=== PATIENT | female | born 1960 | race Caucasian/White ===

== ENCOUNTER 2023-10-22 11:14 | Observation (INO) | payer BC ==
[2023-10-22] MEDS ORDERED: FAMOTIDINE 20 MG/2 ML VIAL IV ONE (11:40)
[2023-10-22] MEDS ORDERED: NA CHLORIDE 0.9% 1,000 ML ONE (11:40)
[2023-10-22] MEDS ORDERED: DIPHENHYDRAMINE 50 MG/ML VIAL ONE (11:40)
[2023-10-22] MEDS ORDERED: METHYLPREDNISOLONE 125 MG INJ ONE (11:40)
[2023-10-22 12:07] LABS: Absolute Eosinophils 0.4 K/uL (0-0.5); Absolute Lymphocytes (CBC) 1.3 K/uL (0.7-4.9); Absolute Monocytes 0.6 K/uL (0.1-1.3); Absolute Neutrophil 7.3 K/uL (1.8-8.0); Basophils % 0.3 % (0-1.3); Eosinophils % 4.3 % (0-4.4); Hematocrit 42.8 % (36.0-45.0); Hemoglobin 14.4 g/dL (12.0-15.0); Lymphocytes % 13.5 % (15.3-44.8); MCH 30.7 pg (27.0-35.0); MCHC 33.5 g/dL (32.0-36.0); MCV 91.7 fL (80-100); MPV 8.5 fL (7.6-11.3); Monocytes % 6.5 % (3.3-12.3); Neutrophils % 75.4 % (41.7-73.7); Nucleated Red Blood Cells % 0.1 % (0-0); Platelets 331 thou/uL (152-406); RBC Red Blood Cell Count 4.67 M/uL (3.86-4.86); Red Cell Distribution Width 14.1 % (12.1-15.2)
[2023-10-22 12:09] LABS: Specific Gravity 1.024 (1.005-1.030); Sqamous Epithelial 20-50 /HPF (None Seen); Transitional Epithelial <5 /HPF (None Seen); Urine Bacteria None Seen /HPF (<20); Urine Bilirubin NEGATIVE (Negative); Urine Blood 1+ (Negative); Urine Clarity Extremely Turbid (Clear); Urine Color Yellow (Yellow); Urine Culture Reflex Order NOT NEEDED; Urine Glucose NEGATIVE (Negative); Urine Ketones NEGATIVE (Negative); Urine Microscopic Reflex YN ORDER UMIC; Urine Mucus Slight /HPF (None Seen); Urine Nitrite NEGATIVE (Negative); Urine Protein TRACE (Negative); Urine Urobilinogen Normal (Normal); Urine pH 5.5 (5.0-7.0)
[2023-10-22 12:25] LABS: Albumin 3.7 g/dL (3.4-5.0); Albumin/Globulin Ratio 0.9 (1.1-1.8); Anion Gap 7.4 mEq/L (5.0-15.0); Bilirubin Total 0.4 mg/dL (0.2-1.0); Globulin 3.9 g/dL (2.3-3.5); Potassium 3.4 mEq/L (3.5-5.1); Protein, Total 7.6 g/dL (6.4-8.2)
[2023-10-22] MEDS ORDERED: CEFTRIAXONE 1000 MG/VIAL ONE (12:48)
[2023-10-22] MEDS ORDERED: ONDANSETRON 4 MG/2 ML VIAL ONE (13:15)
[2023-10-22] MEDS ORDERED: MORPHINE 4 MG/ML SYR ONE (13:15)
--- NOTE | 2023-10-22 13:28 | ER ---
Nurse's Notes [facility] Name: Shane Slaughter Age: 63 yrs Sex: Female : 1960 Arrival Date: 10/22/2023 Time: 11:14 Bed 17 Private MD: Diagnosis: Erythema multiforme, unspecified;Dermatitis, unspecified;UTI/ Urinary tract infection, site not specified Presentation: 10/21 11:27 Coronavirus screen: Client denies travel out of the [place] in the last 14 days. At this ll1 time, the client does not indicate any symptoms associated with coronavirus-19. Ebola Screen: Patient denies travel to an Ebola-affected area in the 21 days before illness onset. Initial Sepsis Screen: Does the patient meet any 2 criteria? No. Patient's initial sepsis screen is negative. Does the patient have a suspected source of infection? No. Patient's initial sepsis screen is negative. Risk Assessment: Do you want to hurt yourself or someone else? Patient reports no desire to harm self or others. Onset of symptoms was October 17, 2023. 11:27 Method Of Arrival: Ambulatory ll1 11:27 Acuity: CHA 3 ll1 11:29 Chief complaint: Patient states: Had MRI last Sunday. Started to have rash with ll1 itching on Sunday morning. Already saw Dr. Luis for this, sent here for further evaluation. Triage Assessment: 11:30 General: Appears uncomfortable, Behavior is calm, cooperative, appropriate for age. ll1 Pain: Complains of pain in right hand and left hand Pain currently is 10 out of 10 on a pain scale. Quality of pain is described as burning, aching. Derm: Reports rash with itching. Historical: - Allergies: 11:26 PENICILLINS; ll1 11:26 Iodine; ll1 - PMHx: 11:26 None; ll1 - PSHx: 11:26 hysterectomy; ll1 - Immunization history:: Adult Immunizations. - Infectious Disease History:: Denies. - Social history:: Smoking status: Reported history of juuling and/or vaping. Screenin:36 [facility] ED Fall Risk Assessment (Adult) History of falling in the last 3 months, mb9 including since admission No falls in past 3 months (0 pts) Confusion or Disorientation No (0 pts) Intoxicated or Sedated No (0 pts) Impaired Gait No (0 pts) Mobility Assist Device Used No (0 pt) Altered Elimination No (0 pt) Score/Fall Risk Level 0 - 2 = Low Risk Oriented to surroundings, Maintained a safe environment, Educated pt \T\ family on fall prevention, incl call for assistance when getting out of bed. Abuse screen: Denies threats or abuse. Nutritional screening: No deficits noted. Tuberculosis screening: No symptoms or risk factors identified. Assessment: 11:44 General: Appears in no apparent distress. Behavior is calm, cooperative. Pain: Denies mb9 pain. Neuro: Huntley Agitation-Sedation Scale (RASS): 0 - Alert and Calm Level of Consciousness is awake, alert, obeys commands, Oriented to person, place, time, situation, Appropriate for age. Cardiovascular: Patient's skin is warm and dry. Respiratory: Airway is patent Respiratory effort is even, unlabored, Respiratory pattern is regular, symmetrical. GI: Abdomen is flat, non-distended. : No signs and/or symptoms were reported regarding the genitourinary system. EENT: No signs and/or symptoms were reported regarding the EENT system. Derm: Rash noted that is itchy, red, raised, on face, back, chest, abdomen, right arm, left arm, right leg and left leg. Musculoskeletal: Range of motion: intact in all extremities. 13:14 Reassessment: Patient appears in no apparent distress at this time. No changes from mb9 previously documented assessment. Patient and/or family updated on plan of care and expected duration. Pain level reassessed. Vital Signs: 11:27 BP 131 / 81; Pulse 77; Resp 16; Temp 97.4; Pulse Ox 99% ; Weight 62.6 kg; Height 5 ft. ll1 2 in. ; Pain 10/10; 13:14 BP 136 / 73; Pulse 74; Resp 18; Pulse Ox 100% on R/A; mb9 11:27 Body Mass Index 25.24 (62.60 kg, 157.48 cm) ll1 11:27 Pain Scale: Adult ll1 ED Course: 11:17 Patient arrived in ED. im 11:21 Dorian Slaughter MD is Attending Physician. que 11:27 Triage completed. ll1 11:27 Arm band placed on Patient placed in an exam room, on a stretcher. ll1 11:35 Sirena Matamoros, RN is Primary Nurse. mb9 11:35 Placed in gown. Bed in low position. Call light in reach. Side rails up X 1. press call mb9 light if needing anything. Client placed on continuous cardiac and pulse oximetry monitoring. NIBP monitoring applied. Door closed. Noise minimized. Warm blanket given. Pillow given. 11:44 Provided Education on: press call light if needing anything. mb9 11:52 Inserted saline lock: 18 gauge in left antecubital area, using aseptic technique. Blood zm collected. 11:53 Initial lab(s) drawn, by ia, sent to lab. zm 11:53 Urinalysis w/ reflexes Sent. zm 11:53 Comprehensive Metabolic Panel Sent. zm 11:53 CBC with Diff Sent. zm 13:26 Monty Ingram is Hospitalizing Provider. [facility] 13:34 No provider procedures requiring assistance completed. Patient admitted, IV remains in mb9 place. Administered Medications: 11:55 Drug: Famotidine IVP 40 mg IVP once; dilute with 10 mL 0.9% NaCl; give over 2 minutes mb9 Route: IVP; Site: left antecubital; 13:14 Follow up: Response: No adverse reaction mb9 11:59 Drug: MethylPrednisoLONE IVP 125 mg IVP once Route: IVP; Site: left antecubital; mb9 13:14 Follow up: Response: No adverse reaction mb9 12:00 Drug: NS 0.9% IV 1000 ml IV at 1 bolus Per protocol; 1000 mL bolus Route: IV; Rate: 1 mb9 bolus; Site: left antecubital; 13:14 Follow up: Response: No adverse reaction; IV Status: Completed infusion mb9 12:01 Drug: diphenhydrAMINE IVP 50 mg IVP once Route: IVP; Site: left antecubital; mb9 13:14 Follow up: Response: No adverse reaction mb9 12:51 Drug: Rocephin IV 1 grams IV at per protocol once; Given slow IV push per pharmacy mb9 instructions Route: IV; Rate: per protocol; Site: left antecubital; 13:17 Drug: Ondansetron IVP 4 mg IVP once; over 2 minutes Route: IVP; Site: left antecubital; mb9 13:35 Follow up: Response: No adverse reaction mb9 13:20 Drug: morphine IVP or IV 2 mg IVP once over 4 mins Route: IVP; Infused Over: 4 mins; mb9 Site: left antecubital; 13:35 Follow up: Response: No adverse reaction mb9 13:21 Drug: morphine IVP or IV 2 mg IVP once over 4 mins Route: IVP; Infused Over: 4 mins; mb9 Site: left antecubital; 13:35 Follow up: Response: No adverse reaction mb9 Medication: 11:36 VIS not applicable for this client. mb9 Outcome: 13:27 Decision to Hospitalize by Provider. que 15:36 Admitted to Med/surg mb9 15:36 Condition: stable 15:36 Instructed on the need for admit, 15:36 Patient left the ED. mb9 Signatures: Dorian Slaughter MD MD cha Lewis, Lynsay RN RN ll1 Mónica Nguyen Mary Beth RN RN mb9 Minna Duff
--- NOTE | 2023-10-22 13:28 | EDPHYS ---
Physician Documentation [facility] Name: Shane Slaughter Age: 63 yrs Sex: Female : 1960 Arrival Date: 10/22/2023 Time: 11:14 Bed 17 Private MD: ED Dorian Joiner HPI: 10/21 13:11 This 63 yrs old Female presents to ER via Ambulatory with complaints of Here que to see . 13:11 The patient's rash thought to be caused by iv contrast, mri. The rash is located on the que body diffusely. The rash can be described as erythematous, raised. Onset: The symptoms/episode began/occurred 5 day(s) ago. Associated signs and symptoms: Pertinent positives: burning sensation, Pain. Severity of symptoms: At their worst the symptoms were moderate in the emergency department the symptoms are unchanged. diffuse skin rash, no oral lesions. Treatment given at home: Benadryl, pepcid. The patient has not experienced similar symptoms in the past. Historical: - Allergies: 11:26 PENICILLINS; ll1 11:26 Iodine; ll1 - PMHx: 11:26 None; ll1 - PSHx: 11:26 hysterectomy; ll1 - Immunization history:: Adult Immunizations. - Infectious Disease History:: Denies. - Social history:: Smoking status: Reported history of juuling and/or vaping. ROS: 13:13 Constitutional: Negative for fever, chills, and weight loss, Eyes: Negative for injury, que pain, redness, and discharge, ENT: Negative for injury, pain, and discharge, Neck: Negative for injury, pain, and swelling, Cardiovascular: Negative for chest pain, palpitations, and edema, Respiratory: Negative for shortness of breath, cough, wheezing, and pleuritic chest pain, Abdomen/GI: Negative for abdominal pain, nausea, vomiting, diarrhea, and constipation, Back: Negative for injury and pain, : Negative for injury, bleeding, discharge, and swelling, MS/Extremity: Negative for injury and deformity, Neuro: Negative for headache, weakness, numbness, tingling, and seizure, Psych: Negative for depression, anxiety, suicide ideation, homicidal ideation, and hallucinations, Allergy/Immunology: Negative for hives, rash, and allergies, Endocrine: Negative for neck swelling, polydipsia, polyuria, polyphagia, and marked weight changes, Hematologic/Lymphatic: Negative for swollen nodes, abnormal bleeding, and unusual bruising, 13:13 Skin: Positive for rash, swelling, diffusely, Exam: 13:13 Constitutional: This is a well developed, well nourished patient who is awake, alert, que and in no acute distress. Head/Face: Normocephalic, atraumatic. Eyes: Pupils equal round and reactive to light, extra-ocular motions intact. Lids and lashes normal. Conjunctiva and sclera are non-icteric and not injected. Cornea within normal limits. Periorbital areas with no swelling, redness, or edema. ENT: Nares patent. No nasal discharge, no septal abnormalities noted. Tympanic membranes are normal and external auditory canals are clear. Oropharynx with no redness, swelling, or masses, exudates, or evidence of obstruction, uvula midline. Mucous membranes moist. Neck: Trachea midline, no thyromegaly or masses palpated, and no cervical lymphadenopathy. Supple, full range of motion without nuchal rigidity, or vertebral point tenderness. No Meningismus. Chest/axilla: Normal chest wall appearance and motion. Nontender with no deformity. No lesions are appreciated. Cardiovascular: Regular rate and rhythm with a normal S1 and S2. No gallops, murmurs, or rubs. Normal PMI, no JVD. No pulse deficits. Respiratory: Lungs have equal breath sounds bilaterally, clear to auscultation and percussion. No rales, rhonchi or wheezes noted. No increased work of breathing, no retractions or nasal flaring. Abdomen/GI: Soft, non-tender, with normal bowel sounds. No distension or tympany. No guarding or rebound. No evidence of tenderness throughout. Back: No spinal tenderness. No costovertebral tenderness. Full range of motion. Female : Normal external genitalia. MS/ Extremity: Pulses equal, no cyanosis. Neurovascular intact. Full, normal range of motion. Neuro: Awake and alert, GCS 15, oriented to person, place, time, and situation. Cranial nerves II-XII grossly intact. Motor strength 5/5 in all extremities. Sensory grossly intact. Cerebellar exam normal. Normal gait. Psych: Awake, alert, with orientation to person, place and time. Behavior, mood, and affect are within normal limits. 13:13 Skin: Appearance: Color: normal in color, Temperature: normal temperature, Moisture: normal moisture, petechiae, not noted, ecchymosis, not noted, rash a moderate rash is noted, Vital Signs: 11:27 BP 131 / 81; Pulse 77; Resp 16; Temp 97.4; Pulse Ox 99% ; Weight 62.6 kg; Height 5 ft. ll1 2 in. ; Pain 10/10; 13:14 BP 136 / 73; Pulse 74; Resp 18; Pulse Ox 100% on R/A; mb9 11:27 Body Mass Index 25.24 (62.60 kg, 157.48 cm) ll1 11:27 Pain Scale: Adult ll1 MDM: 11:21 Patient medically screened. [facility] 13:16 Differential diagnosis: impetigo, varicella, allergic reaction. Data reviewed: vital [facility] signs, nurses notes, lab test result(s). Consideration of Admission/Observation Patient was admitted/placed on observation. Escalation of care including admission/observation considered. I considered the following discharge prescriptions or medication management in the emergency department Medications were administered in the Emergency Department. See MAR. Care significantly affected by the following chronic conditions: none. 10/21 11:22 Order name: CBC with Diff; Complete Time: 12:23 [facility] 10/21 11:22 Order name: Comprehensive Metabolic Panel; Complete Time: 12:39 [facility] 10/21 11:22 Order name: Urinalysis w/ reflexes; Complete Time: 12:23 [facility] 10/21 12:24 Order name: Urine Culture [facility] 10/21 14:23 Order name: Basic Metabolic Panel [facility] 10/21 14:23 Order name: Basic Metabolic Panel [facility] 10/21 14:23 Order name: Basic Metabolic Panel [facility] 10/21 14:23 Order name: CBC with Automated Diff [facility] 10/21 14:23 Order name: CBC with Automated Diff [facility] 10/21 14:23 Order name: CBC with Automated Diff [facility] 10/21 14:23 Order name: T4 Free [facility] 10/21 14:23 Order name: T4 Free [facility] 10/21 14:23 Order name: Thyroid Stimulating Hormone [facility] 10/21 14:23 Order name: Thyroid Stimulating Hormone [facility] Administered Medications: 11:55 Drug: Famotidine IVP 40 mg IVP once; dilute with 10 mL 0.9% NaCl; give over 2 minutes mb9 Route: IVP; Site: left antecubital; 13:14 Follow up: Response: No adverse reaction mb9 11:59 Drug: MethylPrednisoLONE IVP 125 mg IVP once Route: IVP; Site: left antecubital; mb9 13:14 Follow up: Response: No adverse reaction mb9 12:00 Drug: NS 0.9% IV 1000 ml IV at 1 bolus Per protocol; 1000 mL bolus Route: IV; Rate: 1 mb9 bolus; Site: left antecubital; 13:14 Follow up: Response: No adverse reaction; IV Status: Completed infusion mb9 12:01 Drug: diphenhydrAMINE IVP 50 mg IVP once Route: IVP; Site: left antecubital; mb9 13:14 Follow up: Response: No adverse reaction mb9 12:51 Drug: Rocephin IV 1 grams IV at per protocol once; Given slow IV push per pharmacy mb9 instructions Route: IV; Rate: per protocol; Site: left antecubital; 13:17 Drug: Ondansetron IVP 4 mg IVP once; over 2 minutes Route: IVP; Site: left antecubital; mb9 13:35 Follow up: Response: No adverse reaction mb9 13:20 Drug: morphine IVP or IV 2 mg IVP once over 4 mins Route: IVP; Infused Over: 4 mins; mb9 Site: left antecubital; 13:35 Follow up: Response: No adverse reaction mb9 13:21 Drug: morphine IVP or IV 2 mg IVP once over 4 mins Route: IVP; Infused Over: 4 mins; mb9 Site: left antecubital; 13:35 Follow up: Response: No adverse reaction mb9 Disposition Summary: 10/22/23 13:27 Hospitalization Ordered Notes: Hospitalization Status: Observation que Provider: Monty Ingram cha Location: Telemetry/MedSurg (observation) que Condition: Stable que Problem: new que Symptoms: have improved que Bed/Room Type: Standard que Room Assignment: 212(10/22/23 14:37) em1 Diagnosis - Erythema multiforme, unspecified que - Dermatitis, unspecified que - UTI/ Urinary tract infection, site not specified que Forms: - Medication Reconciliation Form que - SBAR form que - Leadership Thank You Letter que Signatures: Dispatcher [employer] Dorian Guan MD MD cha Martinez, Albin em1 Tomi Sanderson RN RN ll1 Sirena Matamoros RN RN mb9 Corrections: (The following items were deleted from the chart) 14:37 13:27 que amaya
[2023-10-22] MEDS ORDERED: ACETAMINOPHEN 325 MG TABLET PO PRN (14:21)
[2023-10-22] MEDS ORDERED: ONDANSETRON 4 MG/2 ML VIAL IV PRN (14:21)
--- NOTE | 2023-10-22 15:11 | P.HP ---
Certification for Inpatient Patient admitted to: Observation With expected LOS: <2 Midnights Patient will require the following post-hospital care: None Practitioner: I am a practitioner with admitting privileges, knowledge of patient current condition, hospital course, and medical plan of care. Services: Services provided to patient in accordance with Admission requirements found in Title 42 Section 412.3 of the Code of Federal Regulations <Saleem Wyatt - Last Filed: 10/22/23 15:05> Patient History Date of Service: 10/22/23 Reason for admission: Allergic reaction History of Present Illness: 64-year-old female with no significant past medical history presents emergency department for chief complaint of rash, possible allergic reaction. She states that she had an MRI with gadolinium contrast on 10/15 to evaluate left-sided facial numbness, MRI was negative. That day she was given an anxiolytic to help her tolerate the scan, the next morning she woke up and noticed a rash that started on her arms and over the course the next 2 days spread throughout her body. The rash is pruritic, painful involves her upper and lower extremities as well as her thorax and face. No current oral lesions noted, no difficulty with her oral intake. Her PCP gave her prescription for steroidsMedrol Dosepak on 10/18 as well as instructing her to take diphenhydramine at home, she has not had any significant improvement significant pain, itchiness related to this rash. ED provider wishes to admit patient under observation for further management - Past Medical/Surgical History -: None -: Hysterectomy Psychosocial/ Personal History: Lives at home with spouce, is retired. - Family History Family History: Reviewed- Non-Contributory - Social History Alcohol use: No CD- Drugs: No Caffeine use: Yes Place of Residence: Home <Saleem Wyatt - Last Filed: 10/22/23 15:05> Date of Service: 10/22/23 <yue delarosa - Last Filed: 10/22/23 16:31> Allergies iodine Allergy (Intermediate, Verified 10/22/23 15:39) Itching/Hives/Rash Penicillins Allergy (Intermediate, Verified 10/22/23 15:39) Itching/Hives/Rash Home Medications: Estradiol 2 mg PO DAILY 10/22/23 Review of Systems 10-point ROS is otherwise unremarkable Integumentary: Rash <Saleem Wyatt - Last Filed: 10/22/23 15:05> Physical Examination - Physical Exam General: Alert, In no apparent distress, Oriented x3 HEENT: Atraumatic, PERRLA, Mucous membr. moist/pink, EOMI Neck: Supple, 2+ carotid pulse no bruit, No LAD, Without JVD or thyroid abnormality Respiratory: Clear to auscultation bilaterally, Normal air movement Cardiovascular: Regular rate/rhythm, Normal S1 S2 Gastrointestinal: Normal bowel sounds, No tenderness Musculoskeletal: No tenderness Integumentary: Rash(es) (Extensive maculopapular rash affecting all extremities, thorax, back, face. No ulceration/blistering present, urticarial) Neurological: Normal gait, Normal speech, Normal strength at 5/5 x4 extr, Normal tone, Normal affect Lymphatics: No axilla or inguinal lymphadenopathy - Studies Laboratory Data (last 24 hrs) 10/22/23 10/22/23 11:48 11:48 WBC 9.70 Hgb 14.4 Hct 42.8 Plt Count 331 Sodium 137 Potassium 3.4 L BUN 13 Creatinine 0.75 Glucose 102 Total Bilirubin 0.4 AST 27 ALT 34 Alkaline Phosphatase 91 <PaddySaleem gordon David - Last Filed: 10/22/23 15:05> - Studies Laboratory Data (last 24 hrs) 10/22/23 10/22/23 11:48 11:48 WBC 9.70 Hgb 14.4 Hct 42.8 Plt Count 331 Sodium 137 Potassium 3.4 L BUN 13 Creatinine 0.75 Glucose 102 Total Bilirubin 0.4 AST 27 ALT 34 Alkaline Phosphatase 91 <yue delarosa - Last Filed: 10/22/23 16:31> Assessment and Plan - Plan Assessment: Extensive maculopapular rash-suspected allergic reaction to MRI contrast Plan: Extensive maculopapular rash-suspected allergic reaction to MRI contrast No oral lesions, blistering/ulcerations present Significant urticaria, pain associated with rash Will treat with corticosteroids, antihistamines including Pepcid As needed pain medications, gentle IV fluids overnight Possible discharge tomorrow if tolerating p.o. and pain controlled on oral medications DVT PPX: Lovenox Code status: Full Discharge Plan: Home Plan to discharge in: 24 Hours - Advance Directives Does patient have a Living Will: No Does patient have a Durable POA for Healthcare: No - Code Status/Comfort Care Code Status Assessed: Yes (Full code) Critical Care: No Time Spent Managing Pts Care (In Minutes): 55 <Saleem Wyatt - Last Filed: 10/22/23 15:05> - Plan Patient seen and evaluated with Saleem Wyatt. Erythematous maculopapular rash suspected to be related to gadolinium contrast. Patient complaining of itching and burning. She reports initiating sore on her tongue which has resolved. No blisters or bullae. Plan: IV methylprednisone IV Pepcid Benadryl as needed Supportive measures with IV hydration. <yue delarosa - Last Filed: 10/22/23 16:31>
[2023-10-22 15:46] VITALS: BMI 24.7
[2023-10-22] MEDS: DIPHENHYDRAMINE 25 MG TAB/CAP PO PRN (16:14)
[2023-10-22] MEDS: ENOXAPARIN 40 MG/0.4 ML SQ SCH (16:14)
[2023-10-22] MEDS: METHYLPREDNISOLONE 40 MG INJ IV SCH (16:14)
[2023-10-22] MEDS: NA CHLORIDE 0.9% 1,000 ML IV SCH (16:14)
[2023-10-22] MEDS: DIPHENHYDRAMINE 25 MG TAB/CAP PO ONE (17:03)
[2023-10-22] MEDS: HYDROCODONE/APAP 5/325 MG TAB PO PRN (17:18)
[2023-10-22] MEDS: HYDROCORTISONE 1 % CREAM 30GM TOP PRN (17:18)
[2023-10-22 17:28] VITALS: O2SAT 97
[2023-10-22] MEDS: FAMOTIDINE 20 MG TAB PO SCH (20:05)
[2023-10-22] MEDS: MELATONIN 5 MG TABLET PO PRN (22:35)
[2023-10-23] MEDS: DIPHENHYDRAMINE 25 MG TAB/CAP PO PRN (00:08)
[2023-10-23 06:50] LABS: Absolute Lymphocytes (CBC) 0.9 K/uL (0.7-4.9); Absolute Monocytes 0.2 K/uL (0.1-1.3); Absolute Neutrophil 3.9 K/uL (1.8-8.0); Basophils % 0.5 % (0-1.3); Eosinophils % 0.2 % (0-4.4); Hematocrit 35.4 % (36.0-45.0); Lymphocytes % 17.2 % (15.3-44.8); MCH 31.3 pg (27.0-35.0); MCHC 33.9 g/dL (32.0-36.0); MCV 92.3 fL (80-100); MPV 8.8 fL (7.6-11.3); Monocytes % 4.7 % (3.3-12.3); Neutrophils % 77.4 % (41.7-73.7); Platelets 268 thou/uL (152-406); RBC Red Blood Cell Count 3.84 M/uL (3.86-4.86); Red Cell Distribution Width 13.9 % (12.1-15.2)
[2023-10-23 07:19] LABS: Anion Gap 5.8 mEq/L (5.0-15.0); Potassium 3.8 mEq/L (3.5-5.1); Thyroid Stimulating Hormone 0.227 uIU/mL (0.358-3.740)
[2023-10-23] MEDS: ALPRAZOLAM 0.5 MG TABLET PO ONE (08:40)
[2023-10-23 08:47] VITALS: BP 141/75; TEMP 97.3
--- NOTE | 2023-10-23 12:53 | P.DS ---
Admission Date: 10/22/23 Discharge Date: 10/23/23 Disposition: ROUTINE DISCHARGE Discharge Condition: GOOD Reason for Admission: Allergic reaction Brief History of Present Illness: 64-year-old female with no significant past medical history presents emergency department for chief complaint of rash, possible allergic reaction. She states that she had an MRI with gadolinium contrast on 10/15 to evaluate left-sided facial numbness, MRI was negative. That day she was given an anxiolytic to help her tolerate the scan, the next morning she woke up and noticed a rash that started on her arms and over the course the next 2 days spread throughout her body. The rash is pruritic, painful involves her upper and lower extremities as well as her thorax and face. No current oral lesions noted, no difficulty with her oral intake. Her PCP gave her prescription for steroidsMedrol Dosepak on 10/18 as well as instructing her to take diphenhydramine at home, she has not had any significant improvement significant pain, itchiness related to this rash. ED provider wishes to admit patient under observation for further management Hospital Course: Assessment: Extensive maculopapular rash-suspected allergic reaction to MRI contrast Patient was admitted to the hospital for severe urticarial rash. The rash began after a MRI with contrast performed on 10/15 and has been worsening over the past few days. At home she had tried Medrol Dosepak, Benadryl without any significant improvement in her symptoms were intolerable. She was referred to the emergency department for evaluation and admitted under observation overnight. She was treated with IV steroidsSolu-Medrol, diphenhydramine, famotidine and had some mild improvement in her rash although she is still quite itchy. She reports he is unable to get any sleep as she has a paradoxical reaction to diphenhydramine. At this time patient is requesting discharge home. She also requested medication to help with the anxiety given the constant itching, pain and paradoxical reaction to Benadryl alongside the steroid use. She is given one- time dose of Xanax. Will be prescribed a short course of benzodiazepines to help with anxiety/sleep. She also had a urinary tract infection, reports she had some dysuria prior to hospitalization. Macrobid sent to pharmacy for urinary tract infection. Prescriptions sent to the pharmacy for the following medications Xanax 0.5 mg as needed at bedtime Macrobid 100 mg by mouth twice daily for 5 days for urinary tract infection Prednisone 10 mg per mouth twice daily for 1 week You may take the following medications [id number] to help with the allergic reaction/rash Famotidine/Pepcid 20 mg by mouth twice daily Diphenhydramine/Benadryl 50 mg by mouth every 6 hours as needed Hydrocortisone cream applied externally 3 times a day as needed Please follow-up with your primary care doctor 1 to 2 weeks Vital Signs/Physical Exam: Temp Pulse Resp BP Pulse Ox 97.3 F 84 16 141/75 H 99 10/23/23 08:00 10/23/23 08:00 10/23/23 08:00 10/23/23 08:00 10/23/23 08:00 General: Alert, In no apparent distress, Oriented x3 HEENT: Atraumatic, PERRLA Neck: Supple, JVD not distended Respiratory: Clear to auscultation bilaterally, Normal air movement Cardiovascular: Regular rate/rhythm, Normal S1 S2 Gastrointestinal: Normal bowel sounds, No tenderness Musculoskeletal: No tenderness Integumentary: Other (Diffuse maculopapular rash, urticarial to upper and lower extremities, thorax, face no blisters/bulla) Neurological: Normal speech, Normal tone, Normal affect Laboratory Data at Discharge: WBC 5.00 thou/uL (4.3-10.9) 10/23/23 06:05 Hgb 12.0 g/dL (12.0-15.0) D 10/23/23 06:05 Hct 35.4 % (36.0-45.0) L 10/23/23 06:05 Plt Count 268 thou/uL (152-406) 10/23/23 06:05 Sodium 140 mEq/L (136-145) 10/23/23 06:05 Potassium 3.8 mEq/L (3.5-5.1) 10/23/23 06:05 BUN 10 mg/dL (7-18) 10/23/23 06:05 Creatinine 0.50 mg/dL (0.55-1.02) L 10/23/23 06:05 Glucose 118 mg/dL (74-106) H 10/23/23 06:05 Total Bilirubin 0.4 mg/dL (0.2-1.0) 10/22/23 11:48 AST 27 U/L (15-37) 10/22/23 11:48 ALT 34 U/L (13-56) 10/22/23 11:48 Alkaline Phosphatase 91 U/L (45-117) 10/22/23 11:48 Home Medications: Estradiol 2 mg PO DAILY 10/22/23 ALPRAZolam [Xanax] 0.5 mg PO BEDTIME PRN 7 Days #7 tab 10/23/23 Nitrofuran Macro [Macrobid] 100 mg PO BID 5 Days #10 cap 10/23/23 predniSONE [Deltasone*] 10 mg PO DAILY 7 Days #14 tab 10/23/23 New Medications: predniSONE [Deltasone*] 10 mg PO DAILY 7 Days #14 tab Nitrofuran Macro [Macrobid] 100 mg PO BID 5 Days #10 cap ALPRAZolam [Xanax] 0.5 mg PO BEDTIME PRN 7 Days #7 tab PRN Reason: Anxiety Physician Discharge Instructions: Patient was admitted to the hospital for severe urticarial rash. The rash began after a MRI with contrast performed on 10/15 and has been worsening over the past few days. At home she had tried Medrol Dosepak, Benadryl without any significant improvement in her symptoms were intolerable. She was referred to the emergency department for evaluation and admitted under observation overnight. She was treated with IV steroidsSolu-Medrol, diphenhydramine, famotidine and had some mild improvement in her rash although she is still quite itchy. She reports he is unable to get any sleep as she has a paradoxical corey ction to diphenhydramine. At this time patient is requesting discharge home. She also requested medication to help with the anxiety given the constant itching, pain and paradoxical reaction to Benadryl alongside the steroid use. She is given one- time dose of Xanax. Will be prescribed a short course of benzodiazepines to help with anxiety/sleep. She also had a urinary tract infection, reports she had some dysuria prior to hospitalization. Macrobid sent to pharmacy for urinary tract infection. Prescriptions sent to the pharmacy for the following medications Xanax 0.5 mg as needed at bedtime Macrobid 100 mg by mouth twice daily for 5 days for urinary tract infection Prednisone 10 mg per mouth twice daily for 1 week You may take the following medications [id number] to help with the allergic reaction/rash Famotidine/Pepcid 20 mg by mouth twice daily Diphenhydramine/Benadryl 50 mg by mouth every 6 hours as needed Hydrocortisone cream applied externally 3 times a day as needed Please follow-up with your primary care doctor 1 to 2 weeks Diet: Regular Activity: Ad roz Followup: Dav Luis MD [Primary Care Provider] - 1-2 Weeks Time spent managing pt's care (in minutes): 35
== END 2023-10-23 08:52 | disposition home or self-care (01) ==
LOC: ER 11:14 → 2ND 14:11
PROVIDERS: ADMIT Internal Medicine; ATTEND Hospitalist
DX: L51.9 Erythema multiforme, unspecified (principal); L30.9 Dermatitis, unspecified; N39.0 Urinary tract infection, site not specified; F17.290 Nicotine dependence, other tobacco product, uncomplicated; Z88.0 Allergy status to penicillin; Z91.09 Other allergy status, other than to drugs and biological substances
CPT/HCPCS: 96361; 85025 ×2; 81001; 80048; 36415; 84443; 84439; 80053; 96375; 96374; 99285; J1200; J1650 ×2; J2919 ×4; J2405; J7030 ×3; J0696; G0378